=== PATIENT | female | born 1980 | race Caucasian/White ===

== ENCOUNTER 2018-09-25 21:22 | Emergency (ER) | payer OTHER, SELFPAY ==
[~2018-09-25] VITALS: Ht 154.9 cm; Wt 78.9 kg
[2018-09-25] MEDS ORDERED: FLUT1DIS8 (21:34)
[2018-09-25 22:45] LABS: BASOPHILS ABSOLUTE AUTO 0.02 K/mm3 (0.00-0.23); BASOPHILS PERCENT AUTO 0 % (0-2); EOSINOPHILS PERCENT AUTO 0 % (0-6); Hematocrit 32.8 % (33.0-51.0); Hemoglobin 9.8 g/dL (11.5-16.0); IMMATURE GRAN ABSOLUTE AUTO 0.02 K/mm3 (0.00-0.10); IMMATURE GRAN PERCENT AUTO 0 % (0-1); LYMPHOCYTES ABSOLUTE AUTO 0.73 K/mm3 (0.84-5.20); LYMPHOCYTES PERCENT AUTO 7 % (21-46); MONOCYTES ABSOLUTE AUTO 0.29 K/mm3 (0.16-1.47); MONOCYTES PERCENT AUTO 3 % (4-13); Mean Corpuscular HGB Conc 29.9 g/dL (31.5-36.5); Mean Corpuscular Volume 70 fL (80-100); Mean Platelet Volume 10.5 fL (9.1-12.4); NEUTROPHILS ABSOLUTE AUTO 10.01 K/mm3 (1.96-9.15); NEUTROPHILS PERCENT AUTO 90 % (41-73); Platelet Count 454 K/mm3 (150-400); RDW Coefficient Variation 17.9 % (11.7-14.2); RDW Standard Deviation 44.6 fL (35.1-46.3); Red Blood Cell Count 4.66 M/mm3 (3.80-5.20); White Blood Cell Count 11.07 K/mm3 (4.00-11.30)
[2018-09-25 23:02] LABS: Alanine Aminotransfer (ALT/SGP 21 U/L (12-78); Albumin, Blood 4.5 g/dL (3.4-5.0); Albumin/Globulin Ratio 1.2 (0.8-1.8); Alk Phos 86 U/L (50-136); Anion Gap 12 mmol/L (6-16); Aspartate Aminotrans (AST/SGOT 18 U/L (12-37); Bilirubin, Total 0.4 mg/dL (0.1-1.0); Blood Urea Nitrogen 17 mg/dL (8-24); CO2, Blood 18 mmol/L (21-32); Calcium, Blood 9.4 mg/dL (8.5-10.1); Chloride, Blood 107 mmol/L (98-108); Creatinine, Blood 0.85 mg/dL (0.40-1.00); Globulin, Blood 3.7 g/dL (2.2-4.0); Glomerular Filtration Rate >60 (60-); Glucose, Blood 132 mg/dL (70-99); Sodium, Blood 137 mmol/L (136-145); Total Protein, Blood 8.2 g/dL (6.4-8.2)
[2018-09-25 23:03] LABS: Source, Urine Clean Catch
[2018-09-25 23:06] LABS: Bilirubin, Urine Neg (Neg); Blood, Urine 1+ (Neg); Glucose Qualitative, Urine Neg (Neg); Ketones, Urine 4+ (Neg); Leukocyte Esterase, Urine 1+ (Neg); Nitrite, Urine Neg (Neg); Protein, Urine 2+ (Neg); Urobilinogen, Urine NORM (Normal)
[2018-09-25 23:07] LABS: Appearance, Urine Clear (Clear); Color, Urine Yellow (P-Yellow)
[2018-09-25 23:12] LABS: Bacteria Many /hpf; Mucus Light (0-Heavy); Red Blood Cells, Urine 0-2 /hpf (0-2); Squamous Epithelial Cells Few /hpf (Few)
[2018-09-26] MEDS ORDERED: Flomax0.4 MG PO (01:17)
[2018-09-26] MEDS ORDERED: Norco 5-325 Ta1 EACH PO (01:17)
[2018-09-26] MEDS ORDERED: KETO10 PO (01:17)
[2018-09-26] MEDS ORDERED: ONDA4ODT MM (01:17)
== END 2018-09-26 01:47 | disposition home or self-care (01) ==
LOC: ER 21:22
PROVIDERS: Emergency Medicine
DX: N13.2 Hydronephrosis with renal and ureteral calculous obstruction (principal); Z79.899 Other long term (current) drug therapy
CPT/HCPCS: 36415; 74176; 80053; 81001; 81025; 85025; 87086; 96361; 96365; 96374; 96375; 96376; 99284-25; A9270; J0696; J1170; J1885; J2405; J3010; J7030

== ENCOUNTER → 2018-11-17 | Outpatient (CLI) | payer OTHER ==
[~2018-11-17] MED LIST: FLUT1DIS8; Flomax0.4 MG PO; KETO10 PO; Norco 5-325 Ta1 EACH PO; ONDA4ODT MM
[2018-11-25 13:07] LABS: BRUSHITE 1.16 ratio (0.00-3.00); CALCIUM OXALATE 3.84 ratio (0.00-6.00); CHLORIDE URINE 134 (110-250); CITRIC ACID (CITRATE) 228 mg/L (Not Estab.); CITRIC ACID(CITRATE) 456 mg/24 hr (320-1240); CREATININE, URINE 56.2 mg/dL (Not Estab.); MAGNESIUM, URINE 4.5 mg/dL (Not Estab.); MONOSODIUM URATE 2.94 ratio (0.00-4.00); OSMOLALITY, URINE 362 (300-900); SODIUM, URINE 168 (39-258); SODIUM, URINE 84 mmol/L (Not Estab.); STRUVITE 0.04 ratio (0.00-1.00); URIC ACID 0.35 ratio (0.00-1.20); URINE VOLUME 2000 mL/24 hr (600-1600); URINE VOLUME (PRESERVATIVE) 2000 mL/24 hr (600-1600)
== END | disposition home or self-care (01) ==
LOC: LAB 07:58 → LAB SHORT 07:58 → LAB FUT 10-23 13:50 → EDSTATUS 10-23 13:50
PROVIDERS: Urology
DX: N20.2 Calculus of kidney with calculus of ureter (principal)
CPT/HCPCS: 81003; 81050; 82131; 82140; 82340; 82436; 82507; 82570; 83735; 83935; 83945; 84105; 84133; 84300; 84392; 84560